=== PATIENT | female | born 1990 | race Caucasian/White ===

== ENCOUNTER → 2017-04-13 | Outpatient (CLI) | payer BC ==
[~2017-04-13] MED LIST: PROTONIX40 M1 PO; SYNTHROID0.137 MG PO; [UNRECOGNIZED DRUG - OTHER] PO
[2017-04-13 10:46] LABS: BASO # 0.1 10*3/uL (0.0-0.1); BASO % 0.7 % (0.0-1.0); EOS # 0.5 10*3/uL (0.0-0.4); EOS % 6.6 % (1.0-4.0); HEMATOCRIT 38.3 % (37.0-47.0); HEMOGLOBIN 12.2 g/dl (12.0-16.0); LYMPH # 2.1 10*3/uL (1.3-4.4); LYMPH % 29.4 % (27.0-41.0); MEAN CELL VOLUME 89.1 fl (81.0-99.0); MEAN CORPUSCULAR HGB 28.4 pg (27.0-31.0); MEAN CORPUSCULAR HGB CONC 31.9 g/dl (33.0-37.0); MEAN PLATELET VOLUME 9.9 fl (9.6-12.3); MONO # 0.6 10*3/uL (0.1-1.0); NEUT # 3.8 10*3/uL (2.3-7.9); NEUT % 53.9 % (47.0-73.0); PLATELET COUNT AUTOMATED 226 10*3/uL (130-400); RED CELL DISTRI WIDTH 13.9 % (0-14.5)
[2017-04-13 10:55] LABS: ALBUMIN 3.9 gm/dl (3.1-4.5); ALKALINE PHOSPHATASE 112 U/L (45-117); BUN 10 mg/dl (7-24); CHLORIDE 109 mmol/L (98-107); POTASSIUM 3.8 mmol/L (3.5-5.1); SGOT/AST 23 IU/L (3-35); SGPT/ALT 22 U/L (12-78); SODIUM 139 mmol/L (136-145); TOTAL PROTEIN 7.6 gm/dL (6.4-8.2)
== END | disposition home or self-care (01) ==
LOC: LAB 09:51
PROVIDERS: Internal Medicine Rheumatology
DX: E03.9 Hypothyroidism, unspecified (principal); M08.90 Juvenile arthritis, unspecified, unspecified site; M25.569 Pain in unspecified knee; M25.469 Effusion, unspecified knee; Z79.899 Other long term (current) drug therapy

== ENCOUNTER → 2018-04-24 | Outpatient (CLI) | payer BC ==
[2018-04-24 09:49] LABS: BASO % 0.7 % (0.0-1.0); EOS # 0.6 10*3/uL (0.0-0.4); EOS % 10.7 % (1.0-4.0); HEMATOCRIT 37.3 % (37.0-47.0); HEMOGLOBIN 11.8 g/dl (12.0-16.0); LYMPH # 1.3 10*3/uL (1.3-4.4); LYMPH % 22.9 % (27.0-41.0); MEAN CELL VOLUME 86.9 fl (81.0-99.0); MEAN CORPUSCULAR HGB 27.5 pg (27.0-31.0); MEAN CORPUSCULAR HGB CONC 31.6 g/dl (33.0-37.0); MEAN PLATELET VOLUME 9.7 fl (9.6-12.3); MONO # 0.5 10*3/uL (0.1-1.0); MONO % 8.1 % (3.0-9.0); NEUT # 3.4 10*3/uL (2.3-7.9); NEUT % 57.4 % (47.0-73.0); PLATELET COUNT AUTOMATED 247 10*3/uL (130-400); RED BLOOD COUNT 4.29 10*6/uL (4.10-5.10); RED CELL DISTRI WIDTH 14.6 % (0-14.5); WHITE BLOOD COUNT 5.8 10*3/uL (4.8-10.8)
[2018-04-24 10:16] LABS: ALKALINE PHOSPHATASE 102 U/L (45-117); BUN 7 mg/dl (7-24); CHLORIDE 109 mmol/L (98-107); CREATININE 0.68 mg/dL (0.55-1.02); POTASSIUM 3.8 mmol/L (3.5-5.1); SGOT/AST 21 IU/L (3-35); SGPT/ALT 20 U/L (12-78); SODIUM 142 mmol/L (136-145); TOTAL PROTEIN 7.7 gm/dL (6.4-8.2)
== END | disposition home or self-care (01) ==
LOC: LAB 09:23
PROVIDERS: Internal Medicine Rheumatology
DX: M08.90 Juvenile arthritis, unspecified, unspecified site (principal); E03.9 Hypothyroidism, unspecified; Z79.899 Other long term (current) drug therapy

== ENCOUNTER → 2018-05-05 | Outpatient (CLI) | payer BC | END | disposition home or self-care (01) | LOC: US 10:13 | DX: M25.562 Pain in left knee (principal); M08.90 Juvenile arthritis, unspecified, unspecified site ==

== ENCOUNTER → 2018-07-04 | Outpatient (CLI) | payer BC | END | disposition home or self-care (01) | LOC: LAB 10:05 | DX: E03.9 Hypothyroidism, unspecified (principal) ==

== ENCOUNTER → 2018-11-02 | Outpatient (CLI) | payer BC ==
[2018-11-02 08:13] LABS: BASO # 0.1 10*3/uL (0.0-0.1); BASO % 0.8 % (0.0-1.0); EOS # 0.4 10*3/uL (0.0-0.4); EOS % 6.9 % (1.0-4.0); HEMATOCRIT 38.9 % (37.0-47.0); HEMOGLOBIN 12.2 g/dl (12.0-16.0); LYMPH # 1.4 10*3/uL (1.3-4.4); LYMPH % 21.4 % (27.0-41.0); MEAN CELL VOLUME 87.4 fl (81.0-99.0); MEAN CORPUSCULAR HGB 27.4 pg (27.0-31.0); MEAN CORPUSCULAR HGB CONC 31.4 g/dl (33.0-37.0); MEAN PLATELET VOLUME 9.7 fl (9.6-12.3); MONO # 0.6 10*3/uL (0.1-1.0); MONO % 8.7 % (3.0-9.0); NEUT # 3.9 10*3/uL (2.3-7.9); PLATELET COUNT AUTOMATED 248 10*3/uL (130-400); RED BLOOD COUNT 4.45 10*6/uL (4.10-5.10); RED CELL DISTRI WIDTH 13.6 % (0-14.5); WHITE BLOOD COUNT 6.4 10*3/uL (4.8-10.8)
[2018-11-02 08:30] LABS: ALBUMIN 3.5 gm/dl (3.1-4.5); ALKALINE PHOSPHATASE 122 U/L (45-117); BUN 7 mg/dl (7-24); CHLORIDE 109 mmol/L (98-107); CREATININE 0.81 mg/dL (0.55-1.02); SGOT/AST 24 IU/L (3-35); SGPT/ALT 39 U/L (12-78); SODIUM 141 mmol/L (136-145); TOTAL PROTEIN 7.5 gm/dL (6.4-8.2)
== END | disposition home or self-care (01) ==
LOC: LAB 07:03
PROVIDERS: Internal Medicine Rheumatology
DX: E03.9 Hypothyroidism, unspecified (principal); M08.90 Juvenile arthritis, unspecified, unspecified site; Z79.899 Other long term (current) drug therapy

== ENCOUNTER → 2019-01-30 | Outpatient (CLI) | payer BC | END | disposition home or self-care (01) | LOC: LAB 06:55 | DX: E03.9 Hypothyroidism, unspecified (principal) ==

== ENCOUNTER → 2019-03-15 | Outpatient (CLI) | payer BC | END | disposition home or self-care (01) | LOC: ORTHO 00:26 | DX: M17.12 Unilateral primary osteoarthritis, left knee (principal) ==

== ENCOUNTER → 2019-03-19 | Outpatient (CLI) | payer BC ==
[2019-03-19 10:06] LABS: BASO % 0.8 % (0.0-1.0); EOS # 0.3 10*3/uL (0.0-0.4); EOS % 5.7 % (1.0-4.0); HEMATOCRIT 39.5 % (37.0-47.0); HEMOGLOBIN 12.3 g/dl (12.0-16.0); LYMPH # 0.9 10*3/uL (1.3-4.4); LYMPH % 19.7 % (27.0-41.0); MEAN CELL VOLUME 87.4 fl (81.0-99.0); MEAN CORPUSCULAR HGB 27.2 pg (27.0-31.0); MEAN CORPUSCULAR HGB CONC 31.1 g/dl (33.0-37.0); MEAN PLATELET VOLUME 10.1 fl (9.6-12.3); MONO # 0.4 10*3/uL (0.1-1.0); MONO % 7.6 % (3.0-9.0); NEUT # 3.1 10*3/uL (2.3-7.9); PLATELET COUNT AUTOMATED 232 10*3/uL (130-400); RED BLOOD COUNT 4.52 10*6/uL (4.10-5.10); RED CELL DISTRI WIDTH 15.2 % (0-14.5); WHITE BLOOD COUNT 4.7 10*3/uL (4.8-10.8)
[2019-03-19 10:22] LABS: ALKALINE PHOSPHATASE 99 U/L (45-117); BUN 11 mg/dl (7-24); CHLORIDE 109 mmol/L (98-107); CREATININE 0.85 mg/dL (0.55-1.02); POTASSIUM 4.1 mmol/L (3.5-5.1); SGOT/AST 16 IU/L (3-35); SGPT/ALT 23 U/L (12-78); SODIUM 139 mmol/L (136-145); TOTAL PROTEIN 7.7 gm/dL (6.4-8.2)
== END | disposition home or self-care (01) ==
LOC: LAB 09:18
PROVIDERS: Internal Medicine Rheumatology
DX: Z79.899 Other long term (current) drug therapy (principal)

== ENCOUNTER → 2019-07-19 | Outpatient (CLI) | payer BC ==
[2019-07-19 18:57] LABS: BASO % 0.4 % (0.0-1.0); EOS # 0.2 10*3/uL (0.0-0.4); EOS % 3.3 % (1.0-4.0); LYMPH # 1.7 10*3/uL (1.3-4.4); MEAN CELL VOLUME 88.6 fl (81.0-99.0); MEAN CORPUSCULAR HGB 27.3 pg (27.0-31.0); MEAN CORPUSCULAR HGB CONC 30.8 g/dl (33.0-37.0); MEAN PLATELET VOLUME 9.7 fl (9.6-12.3); MONO # 0.5 10*3/uL (0.1-1.0); MONO % 7.7 % (3.0-9.0); NEUT # 4.4 10*3/uL (2.3-7.9); NEUT % 64.3 % (47.0-73.0); PLATELET COUNT AUTOMATED 259 10*3/uL (130-400); RED CELL DISTRI WIDTH 14.5 % (0-14.5); WHITE BLOOD COUNT 6.9 10*3/uL (4.8-10.8)
[2019-07-19 19:36] LABS: ALKALINE PHOSPHATASE 111 U/L (45-117); BUN 11 mg/dl (7-24); CHLORIDE 108 mmol/L (98-107); CREATININE 0.93 mg/dL (0.55-1.02); POTASSIUM 3.9 mmol/L (3.5-5.1); SGOT/AST 23 IU/L (3-35); SGPT/ALT 26 U/L (12-78); SODIUM 139 mmol/L (136-145); TOTAL PROTEIN 8.1 gm/dL (6.4-8.2)
== END | disposition home or self-care (01) ==
LOC: LAB 18:20
PROVIDERS: Internal Medicine Rheumatology
DX: E55.9 Vitamin D deficiency, unspecified (principal); Z79.899 Other long term (current) drug therapy

== ENCOUNTER → 2019-10-18 | Outpatient (CLI) | payer BC ==
[2019-10-18 07:23] LABS: BASO % 0.6 % (0.0-1.0); EOS # 0.3 10*3/uL (0.0-0.4); EOS % 5.6 % (1.0-4.0); HEMATOCRIT 39.7 % (37.0-47.0); HEMOGLOBIN 12.4 g/dl (12.0-16.0); LYMPH # 1.2 10*3/uL (1.3-4.4); LYMPH % 24.5 % (27.0-41.0); MEAN CELL VOLUME 88.6 fl (81.0-99.0); MEAN CORPUSCULAR HGB 27.7 pg (27.0-31.0); MEAN CORPUSCULAR HGB CONC 31.2 g/dl (33.0-37.0); MEAN PLATELET VOLUME 9.5 fl (9.6-12.3); MONO # 0.4 10*3/uL (0.1-1.0); MONO % 8.8 % (3.0-9.0); NEUT % 60.3 % (47.0-73.0); PLATELET COUNT AUTOMATED 239 10*3/uL (130-400); RED BLOOD COUNT 4.48 10*6/uL (4.10-5.10); RED CELL DISTRI WIDTH 15.2 % (0-14.5)
[2019-10-18 07:51] LABS: ALBUMIN 3.7 gm/dl (3.1-4.5); ALKALINE PHOSPHATASE 100 U/L (45-117); BUN 10 mg/dl (7-24); CHLORIDE 111 mmol/L (98-107); CREATININE 0.77 mg/dL (0.55-1.02); POTASSIUM 4.1 mmol/L (3.5-5.1); SGOT/AST 18 IU/L (3-35); SGPT/ALT 24 U/L (12-78); SODIUM 142 mmol/L (136-145); TOTAL PROTEIN 7.2 gm/dL (6.4-8.2)
== END | disposition home or self-care (01) ==
LOC: LAB 06:57
PROVIDERS: Internal Medicine Rheumatology
DX: M08.90 Juvenile arthritis, unspecified, unspecified site (principal); E55.9 Vitamin D deficiency, unspecified; Z79.899 Other long term (current) drug therapy

== ENCOUNTER → 2020-07-25 | Outpatient (CLI) | payer BC | END | disposition home or self-care (01) | LOC: COVID19 13:42 | PROVIDERS: ATTEND Internal Medicine | DX: Z20.828 Contact with and (suspected) exposure to other viral communicable diseases (principal) ==

== ENCOUNTER → 2021-01-21 | Outpatient (CLI) | payer BC | END | disposition home or self-care (01) | LOC: LAB 16:13 | PROVIDERS: ATTEND Family Medicine | DX: E03.9 Hypothyroidism, unspecified (principal) ==

== ENCOUNTER → 2021-03-07 | Outpatient (CLI) | payer BC ==
[2021-03-07 12:14] LABS: BASO % 0.4 % (0.0-1.0); EOS # 0.3 10*3/uL (0.0-0.4); EOS % 4.4 % (1.0-4.0); HEMATOCRIT 39.5 % (37.0-47.0); LYMPH # 1.7 10*3/uL (1.3-4.4); LYMPH % 24.5 % (27.0-41.0); MEAN CELL VOLUME 90.4 fl (81.0-99.0); MEAN CORPUSCULAR HGB 29.1 pg (27.0-31.0); MEAN CORPUSCULAR HGB CONC 32.2 g/dl (33.0-37.0); MEAN PLATELET VOLUME 9.4 fl (9.6-12.3); MONO # 0.7 10*3/uL (0.1-1.0); NEUT # 4.3 10*3/uL (2.3-7.9); NEUT % 60.3 % (47.0-73.0); PLATELET COUNT AUTOMATED 251 10*3/uL (130-400); RED BLOOD COUNT 4.37 10*6/uL (4.10-5.10); RED CELL DISTRI WIDTH 13.4 % (0-14.5); WHITE BLOOD COUNT 7.1 10*3/uL (4.8-10.8)
[2021-03-07 12:54] LABS: BUN 10 mg/dl (7-24); CHLORIDE 108 mmol/L (98-107); CREATININE 0.64 mg/dL (0.55-1.02); POTASSIUM 4.1 mmol/L (3.5-5.1); SGOT/AST 18 IU/L (3-35); SGPT/ALT 20 U/L (12-78); SODIUM 138 mmol/L (136-145); TOTAL PROTEIN 7.5 gm/dL (6.4-8.2)
[2021-03-07 12:55] LABS: ALKALINE PHOSPHATASE 97 U/L (45-117)
== END | disposition home or self-care (01) ==
LOC: LAB 11:32
PROVIDERS: ATTEND Internal Medicine Rheumatology
DX: M08.80 Other juvenile arthritis, unspecified site (principal); Z79.899 Other long term (current) drug therapy

== ENCOUNTER → 2021-05-27 | Outpatient (CLI) | payer BC ==
[2021-05-27 17:15] LABS: BILIRUBIN Negative (Negative); BLOOD Negative (Negative); CLARITY Clear (Clear); COLOR Yellow (Yellow); GLUCOSE Negative (Negative); KETONE Negative (Negative); LEUKO ESTERASE 1+ (Negative); NITRITE Negative (Negative); PH 6.5 (4.5-8.0); UROBILINOGEN 0.2 E.U./dl (0.0-1.0)
[2021-05-27 17:32] LABS: BACTERIA 1+; EPITHELIAL CELLS 16-20; RBC 0-2 rbc/hpf (0-2)
[2021-05-28 07:06] LABS: COMPLEMENT C4 41 mg/dL (12-38)
[2021-05-28 12:07] LABS: ANTI-DSDNA ANTIBODIES 3 IU/mL (0-9); ANTI-RNP ANTIBODIES <0.2 AI (0.0-0.9); SJOGREN ANTI-SS-A <0.2 AI (0.0-0.9); SJOREN AB, ANTI-SS-B 0.9 AI (0.0-0.9)
== END | disposition home or self-care (01) ==
LOC: LAB 16:32
PROVIDERS: ATTEND Internal Medicine Rheumatology
DX: R76.8 Other specified abnormal immunological findings in serum (principal)

== ENCOUNTER → 2021-12-13 | Outpatient (CLI) | payer BC ==
[2021-12-13 09:26] LABS: HEMATOCRIT 40.6 % (37.0-47.0); MEAN CELL VOLUME 89.8 fl (81.0-99.0); MEAN CORPUSCULAR HGB 29.9 pg (27.0-31.0); MEAN CORPUSCULAR HGB CONC 33.3 g/dl (33.0-37.0); MEAN PLATELET VOLUME 9.4 fl (9.6-12.3); RED BLOOD COUNT 4.52 10*6/uL (4.10-5.10); RED CELL DISTRI WIDTH 13.8 % (0-14.5); WHITE BLOOD COUNT 5.5 10*3/uL (4.8-10.8)
[2021-12-13 09:46] LABS: ALKALINE PHOSPHATASE 81 U/L (45-117); BUN 9 mg/dl (7-24); CHLORIDE 111 mmol/L (98-107); CHOLESTEROL 154 mg/dL (<200); CREATININE 0.73 mg/dL (0.55-1.02); LDL CHOLESTEROL 87 mg/dL (9-159); POTASSIUM 4.1 mmol/L (3.5-5.1); SGOT/AST 21 IU/L (3-35); SGPT/ALT 19 U/L (12-78); SODIUM 139 mmol/L (136-145); TOTAL PROTEIN 7.7 gm/dL (6.4-8.2); TRIGLYCERIDES 48 mg/dl (<150)
== END | disposition home or self-care (01) ==
LOC: LAB 09:04
PROVIDERS: ATTEND Physician Assistant
DX: K21.9 Gastro-esophageal reflux disease without esophagitis (principal); M06.9 Rheumatoid arthritis, unspecified; E03.9 Hypothyroidism, unspecified

== ENCOUNTER → 2022-02-12 | Outpatient (CLI) | payer BC ==
[2022-02-12 15:08] LABS: BASO % 0.7 % (0.0-1.0); EOS # 0.3 10*3/uL (0.0-0.4); EOS % 4.9 % (1.0-4.0); HEMATOCRIT 38.2 % (37.0-47.0); LYMPH # 1.4 10*3/uL (1.3-4.4); LYMPH % 22.9 % (27.0-41.0); MEAN CELL VOLUME 91.8 fl (81.0-99.0); MEAN CORPUSCULAR HGB 30.5 pg (27.0-31.0); MEAN CORPUSCULAR HGB CONC 33.2 g/dl (33.0-37.0); MEAN PLATELET VOLUME 9.6 fl (9.6-12.3); MONO # 0.5 10*3/uL (0.1-1.0); MONO % 8.7 % (3.0-9.0); NEUT # 3.8 10*3/uL (2.3-7.9); NEUT % 62.6 % (47.0-73.0); PLATELET COUNT AUTOMATED 228 10*3/uL (130-400); RED BLOOD COUNT 4.16 10*6/uL (4.10-5.10); RED CELL DISTRI WIDTH 13.2 % (0-14.5); WHITE BLOOD COUNT 6.1 10*3/uL (4.8-10.8)
[2022-02-12 15:27] LABS: CREATININE 0.73 mg/dL (0.55-1.02); SGOT/AST 14 IU/L (3-35); SGPT/ALT 15 U/L (12-78)
== END | disposition home or self-care (01) ==
LOC: LAB 14:41
PROVIDERS: ATTEND Internal Medicine Rheumatology
DX: M08.80 Other juvenile arthritis, unspecified site (principal); D84.9 Immunodeficiency, unspecified

== ENCOUNTER → 2022-12-07 | Outpatient (CLI) | payer BC ==
[2022-12-07 17:22] LABS: BASO % 0.5 % (0.0-1.0); EOS # 0.3 10*3/uL (0.0-0.4); EOS % 3.3 % (1.0-4.0); HEMATOCRIT 42.1 % (37.0-47.0); LYMPH % 24.6 % (27.0-41.0); MEAN CELL VOLUME 90.5 fl (81.0-99.0); MEAN CORPUSCULAR HGB 29.2 pg (27.0-31.0); MEAN CORPUSCULAR HGB CONC 32.3 g/dl (33.0-37.0); MEAN PLATELET VOLUME 9.5 fl (9.6-12.3); MONO # 0.7 10*3/uL (0.1-1.0); MONO % 8.2 % (3.0-9.0); PLATELET COUNT AUTOMATED 235 10*3/uL (130-400); RED BLOOD COUNT 4.65 10*6/uL (4.10-5.10); RED CELL DISTRI WIDTH 13.7 % (0-14.5); WHITE BLOOD COUNT 7.9 10*3/uL (4.8-10.8)
[2022-12-07 17:44] LABS: SGPT/ALT 10 U/L (10-49)
== END | disposition home or self-care (01) ==
LOC: LAB 17:06
PROVIDERS: ATTEND Internal Medicine Rheumatology
DX: M08.80 Other juvenile arthritis, unspecified site (principal); D84.9 Immunodeficiency, unspecified

== ENCOUNTER → 2023-03-30 | Outpatient (CLI) | payer BC ==
[2023-03-30 10:30] LABS: BASO # 0.1 10*3/uL (0.0-0.1); BASO % 0.9 % (0.0-1.0); EOS # 0.5 10*3/uL (0.0-0.4); EOS % 7.8 % (1.0-4.0); LYMPH # 1.7 10*3/uL (1.3-4.4); LYMPH % 28.6 % (27.0-41.0); MEAN CORPUSCULAR HGB 30.3 pg (27.0-31.0); MEAN CORPUSCULAR HGB CONC 31.8 g/dl (33.0-37.0); MEAN PLATELET VOLUME 9.7 fl (9.6-12.3); MONO # 0.5 10*3/uL (0.1-1.0); MONO % 9.3 % (3.0-9.0); NEUT # 3.1 10*3/uL (2.3-7.9); NEUT % 53.2 % (47.0-73.0); PLATELET COUNT AUTOMATED 212 10*3/uL (130-400); WHITE BLOOD COUNT 5.8 10*3/uL (4.8-10.8)
[2023-03-30 10:57] LABS: SGPT/ALT 12 U/L (10-49)
== END | disposition home or self-care (01) ==
LOC: LAB 09:42
PROVIDERS: ATTEND Internal Medicine Rheumatology
DX: D84.9 Immunodeficiency, unspecified (principal); M08.80 Other juvenile arthritis, unspecified site

== ENCOUNTER → 2024-08-26 | Outpatient (CLI) | payer BC ==
[2024-08-26 07:49] LABS: HEMATOCRIT 41.4 % (37.0-47.0); MEAN CELL VOLUME 90.8 fl (81.0-99.0); MEAN CORPUSCULAR HGB 30.3 pg (27.0-31.0); MEAN CORPUSCULAR HGB CONC 33.3 g/dl (33.0-37.0); MEAN PLATELET VOLUME 9.2 fl (9.6-12.3); RED BLOOD COUNT 4.56 10*6/uL (4.10-5.10); RED CELL DISTRI WIDTH 12.4 % (0-14.5); WHITE BLOOD COUNT 7.3 10*3/uL (4.8-10.8)
[2024-08-26 08:13] LABS: ALKALINE PHOSPHATASE 97 U/L (46-116); BUN 9 mg/dl (9-23); CHLORIDE 107 mmol/L (98-107); CHOLESTEROL 154 mg/dL (<200); LDL CHOLESTEROL 85 mg/dL (9-159); POTASSIUM 3.9 mmol/L (3.4-5.1); SGPT/ALT 23 U/L (5-49); TOTAL PROTEIN 7.3 gm/dL (6.0-8.0); TRIGLYCERIDES 61 mg/dl (<150)
== END | disposition home or self-care (01) ==
LOC: LAB 07:28
PROVIDERS: ATTEND Physician Assistant
DX: Z01.89 Encounter for other specified special examinations (principal); K21.9 Gastro-esophageal reflux disease without esophagitis; E03.9 Hypothyroidism, unspecified

== ENCOUNTER 2024-10-27 15:13 | Emergency (ER) | payer BC ==
[~2024-10-27] VITALS: Ht 162.5 cm; Wt 120.7 kg
[2024-10-27] MEDS ORDERED: SODIUM CHLORIDE 0.9% 500 ML IV ONE (15:40)
[2024-10-27] MEDS ORDERED: Pantoprazole Sodium 40 MG VIAL IV ONE (15:40)
[2024-10-27 15:55] LABS: BASO % 0.6 % (0.0-1.0); EOS # 0.3 10*3/uL (0.0-0.4); MEAN CELL VOLUME 90.7 fl (81.0-99.0); MEAN CORPUSCULAR HGB 30.2 pg (27.0-31.0); MEAN CORPUSCULAR HGB CONC 33.3 g/dl (33.0-37.0); MEAN PLATELET VOLUME 9.4 fl (9.6-12.3); MONO # 0.5 10*3/uL (0.1-1.0); NEUT # 4.4 10*3/uL (2.3-7.9); NEUT % 67.2 % (47.0-73.0); PLATELET COUNT AUTOMATED 233 10*3/uL (130-400); RED BLOOD COUNT 4.63 10*6/uL (4.10-5.10); RED CELL DISTRI WIDTH 12.3 % (0-14.5); WHITE BLOOD COUNT 6.5 10*3/uL (4.8-10.8)
[2024-10-27 16:16] LABS: ALKALINE PHOSPHATASE 104 U/L (46-116); BUN 10 mg/dl (9-23); CHLORIDE 107 mmol/L (98-107); LIPASE 44 U/L (12-53); POTASSIUM 3.8 mmol/L (3.4-5.1); SGPT/ALT 17 U/L (5-49); TOTAL PROTEIN 7.5 gm/dL (6.0-8.0)
[2024-10-27 17:05] LABS: BILIRUBIN Negative (Negative); BLOOD Negative (Negative); CLARITY Clear (Clear); COLOR Yellow (Yellow); GLUCOSE Negative (Negative); KETONE Negative (Negative); LEUKO ESTERASE Negative (Negative); NITRITE Negative (Negative); PH 6.5 (4.5-8.0); SPECIFIC GRAVITY <= 1.005 (1.001-1.030); UROBILINOGEN 0.2 E.U./dl (0.0-1.0)
[2024-10-27 17:10] LABS: WBC 0-2 wbc/hpf (0-5)
== END 2024-10-27 18:13 | disposition home or self-care (01) ==
LOC: ED 15:13
PROVIDERS: Emergency Medicine
DX: N83.202 Unspecified ovarian cyst, left side (principal); K27.9 Peptic ulcer, site unspecified, unspecified as acute or chronic, without hemorrhage or perforation; R91.1 Solitary pulmonary nodule; E03.9 Hypothyroidism, unspecified; Z96.652 Presence of left artificial knee joint; Z90.49 Acquired absence of other specified parts of digestive tract; Z88.1 Allergy status to other antibiotic agents; Z79.899 Other long term (current) drug therapy; Z90.89 Acquired absence of other organs

== ENCOUNTER → 2024-11-14 | Outpatient (CLI) | payer BC | END | disposition home or self-care (01) | LOC: US 03:36 | PROVIDERS: ATTEND Nurse Practitioner Women's Health | DX: N83.201 Unspecified ovarian cyst, right side (principal); R10.2 Pelvic and perineal pain ==

== ENCOUNTER → 2025-01-18 | Outpatient (CLI) | payer BC | END | disposition home or self-care (01) | LOC: US 03:10 | PROVIDERS: ATTEND Nurse Practitioner Women's Health | DX: N83.209 Unspecified ovarian cyst, unspecified side (principal) ==

== ENCOUNTER → 2025-04-25 | Outpatient (CLI) | payer BC | END | disposition home or self-care (01) | LOC: US 00:07 | PROVIDERS: ATTEND Nurse Practitioner Women's Health | DX: N83.209 Unspecified ovarian cyst, unspecified side (principal) ==

== ENCOUNTER → 2025-07-18 | Outpatient (CLI) | payer BC ==
[~2025-07-18] MED LIST changes: +FAMOTIDINE20 M1 PO; +NEXIUM40 MG PO; +SYNTHROID,LEV175 MCG PO
[2025-07-18 17:07] LABS: BASO # 0.1 10*3/uL (0.0-0.1); BASO % 0.8 % (0.0-1.0); EOS # 0.2 10*3/uL (0.0-0.4); EOS % 2.9 % (1.0-4.0); MEAN CELL VOLUME 90.3 fl (81.0-99.0); MEAN CORPUSCULAR HGB 30.4 pg (27.0-31.0); MEAN PLATELET VOLUME 9.1 fl (9.6-12.3); MONO # 0.6 10*3/uL (0.1-1.0); MONO % 7.0 % (3.0-9.0); NEUT # 4.8 10*3/uL (2.3-7.9); NEUT % 61.3 % (47.0-73.0); NUCLEATED RED BLOOD CELL 0.0 % (0.0-0.0); NUCLEATED RED BLOOD CELL 0.0 10*3/uL (0.0-0.0); PLATELET COUNT AUTOMATED 280 10*3/uL (130-400); RED CELL DISTRI WIDTH 12.4 % (0-14.5)
== END | disposition home or self-care (01) ==
LOC: LAB 16:48
PROVIDERS: ATTEND Obstetrics & Gynecology
DX: R10.20 Pelvic and perineal pain unspecified side (principal); N80.9 Endometriosis, unspecified; N92.0 Excessive and frequent menstruation with regular cycle

== ENCOUNTER → 2025-07-23 | Day surgery (SDC) | payer BC ==
[~2025-07-23] VITALS: Ht 162.5 cm; Wt 124.3 kg
[~2025-07-23] MED LIST changes: +ACETAMINOPHEN 100 ML IV ONE; +Dexamethasone Sodium Phospha 4 MG/ML VIAL IV ONE; +Ketamine Hydrochloride 500 MG/10 ML VIAL IV ONE; +Lactated Ringer's Solution 1,000 ML IV ONE; +Lidocaine Hydrochloride 5 ML VIAL IV ONE; +Midazolam Hydrochloride 2 MG/2 ML VIAL IV ONE; +Ondansetron Hydrochloride 4 MG TAB PO ONE; +Ondansetron Hydrochloride 4 MG/2 ML VIAL IV ONE; +PROPOFOL 200 MG/20 ML VIAL IV ONE; +ROCURONIUM BROMIDE 50 MG/5 ML SYRINGE IV ONE; +SEVOFLURANE 250 ML BOT INH ONE; +SUGAMMADEX SODIUM 200 MG/2 ML VIAL IV ONE
[2025-07-23 07:19] VITALS: BP 129/82
[2025-07-23 09:08] VITALS: BP 116/73
[2025-07-23 09:23] VITALS: BP 134/68
[2025-07-23 09:38] VITALS: BP 135/77
[2025-07-23 09:53] VITALS: BP 120/69
[2025-07-23 10:05] VITALS: BP 130/86
== END | disposition home or self-care (01) ==
LOC: SDC 07-20 08:45
PROVIDERS: ATTEND Obstetrics & Gynecology
DX: N80.03 Adenomyosis of the uterus (principal); R10.20 Pelvic and perineal pain unspecified side; N84.0 Polyp of corpus uteri; E07.9 Disorder of thyroid, unspecified; Z98.890 Other specified postprocedural states; Z88.8 Allergy status to other drugs, medicaments and biological substances; Z79.899 Other long term (current) drug therapy